=== PATIENT | male | born 1940 | race Caucasian/White ===

== ENCOUNTER 2017-04-18 18:22 | Emergency (ER) | payer OTHER ==
[2017-04-18 18:37] VITALS: BP 165/95; PULSE 75
--- NOTE | 2017-04-18 18:44 | EDPHY ---
H & P Stated Complaint: ear piece from hearing aid wedged in ear Time Seen by Provider: 04/18/17 18:39 HPI/ROS: CHIEF COMPLAINT: Ear foreign body HISTORY OF PRESENT ILLNESS: The patient is a 76-year-old man who lost a piece of his hearing aid in his right ear canal. This has happened before. He is could not get it out. He denies any pain. No hearing changes. REVIEW OF SYSTEMS: Constitutional: denies: chills, fever, recent illness, recent injury EENTM: See HPI Respiratory: denies: cough, shortness of breath Cardiac: denies: chest pain, irregular heart rate, lightheadedness, palpitations Gastrointestinal/Abdominal: denies: abdominal pain, diarrhea, nausea, vomiting, blood streaked stools Genitourinary: denies: dysuria, frequency, hematuria, pain Musculoskeletal: denies: joint pain, muscle pain Skin: denies: lesions, rash, jaundice, bruising Neurological: denies: headache, numbness, paresthesia, tingling, dizziness, weakness Hematologic/Lymphatic: denies: blood clots, easy bleeding, easy bruising Immunologic/allergic: denies: HIV/AIDS, transplant EXAM: GENERAL: Well-appearing, well-nourished and in no acute distress. HEAD: Atraumatic, normocephalic. EYES: Pupils equal round and reactive to light, extraocular movements intact, sclera anicteric, conjunctiva are normal. ENT: Foreign body right ear canal, no laceration or abrasion. No bleeding. No infection. TMs normal, nares patent, oropharynx clear without exudates. Moist mucous membranes. NECK: Normal range of motion, supple without lymphadenopathy or JVD. LUNGS: Breath sounds clear to auscultation bilaterally and equal. No wheezes rales or rhonchi. HEART: Regular rate and rhythm without murmurs, rubs or gallops. ABDOMEN: Soft, nontender, normoactive bowel sounds. No guarding, no rebound. No masses appreciated. BACK: No CVA tenderness, no spinal tenderness, step-offs or deformities EXTREMITIES: Normal range of motion, no pitting or edema. No clubbing or cyanosis. NEUROLOGICAL: Cranial nerves II through XII grossly intact. Normal speech, normal gait. 5/5 strength, normal movement in all extremities, normal sensation PSYCH: Normal mood, normal affect. SKIN: Warm, dry, normal turgor, no visible rashes or lesions. Source: Patient Exam Limitations: No limitations - Personal History Current Tetanus/Diphtheria Vaccine: Yes Current Tetanus Diphtheria and Acellular Pertussis (TDAP): Yes - Medical/Surgical History Hx Asthma: No Hx Chronic Respiratory Disease: No Hx Diabetes: No Hx Cardiac Disease: Yes Hx Renal Disease: No Hx Cirrhosis: No Hx Alcoholism: No Hx HIV/AIDS: No Hx Splenectomy or Spleen Trauma: No Other PMH: HBP/HIGH CHOLESTEROL, 5.1 cm Ascending Aortic Aneurism, prostatectomy , appendectomy, CAROL-CPAP w/o O2 NOC - Family History Significant Family History: No pertinent family hx - Social History Smoking Status: Never smoked Alcohol Use: Sober Drug Use: None Constitutional: Initial Vital Signs Temperature (C) 36.5 C 04/18/17 18:32 Heart Rate 75 04/18/17 18:32 Respiratory Rate 18 04/18/17 18:32 Blood Pressure 165/95 H 04/18/17 18:32 O2 Sat (%) 95 04/18/17 18:32 O2 Delivery Mode Room Air Allergies/Adverse Reactions: nebivolol HCl [From Bystolic] Allergy (Severe, Verified 05/01/15 07:35) Other-Enter Comments valsartan Allergy (Verified 04/18/17 18:31) Home Medications: Medication Instructions Recorded Simvastatin 20 mg PO HS 04/17/12 Aspirin [Aspirin 81mg (*)] 81 mg PO HS 03/31/15 Cholecalciferol (Vitamin D3) 2,000 unit PO HS 03/31/15 [Vitamin D3] amLODIPine BESYLATE [Norvasc 2.5 2.5 mg PO DAILY #0 tab 04/18/15 mg (*)] Medical Decision Making ED Course/Re-evaluation: I was able to remove the patient's foreign body with bayonet forceps and a headlamp. The patient tolerated the procedure well. He was happy and placed a hearing aid back into his ear. He declines further workup or testing. Differential Diagnosis: Partial list of the Differential diagnosis considered include but were not limited to; malfunction, foreign body ear, infection and although unlikely based on the history and physical exam, I also considered trauma,. I discussed these differential diagnoses and the plan with the patient as well as the usual and expected course. The patient understands that the diagnosis is provisional and that in medicine we are not always correct and that further workup is often warranted. Usual and customary warnings were given. All of the patient's questions were answered. The patient was instructed to return to the emergency department should the symptoms at all worsen or return, otherwise to followup with the physician as we discussed. Departure - Departure Disposition: Home, Routine, Self-Care Clinical Impression: Foreign body in right auditory canal Qualifiers: Encounter type: initial encounter Qualified Code(s): S00.451A - Superficial foreign body of right ear, initial encounter Condition: Fair Instructions: Ear Foreign Body (ED) Referrals: Ronal Jimenez MD [Primary Care Provider] - As per Instructions
[2017-04-18 18:57] VITALS: RESP 20; TEMP 98.6; O2SAT 94
== END 2017-04-18 18:57 | disposition home or self-care (01) ==
LOC: CED 18:22
DX: S00.451A Superficial foreign body of right ear, initial encounter (principal); Z79.82 Long term (current) use of aspirin; X58.XXXA Exposure to other specified factors, initial encounter

== ENCOUNTER 2017-05-28 16:21 | Emergency (ER) | payer OTHER ==
[2017-05-28] MEDS ORDERED: ADENOSINE 6 MG/2 ML VIAL ONE (16:30)
--- NOTE | 2017-05-28 16:32 | CPEKG ---
Heart Rate: 151 RR Interval: 397 QRSD Interval: 90 QT Interval: 308 QTC Interval: 489 P [place]: 0 QRS [place]: -56 T Wave [place]: 66 EKG Severity - ABNORMAL ECG - EKG Impression: Narrow complex tachycardia EKG Impression: LEFT ANTERIOR FASCICULAR BLOCK EKG Impression: CONSIDER POSTERIOR INFARCT EKG Impression: ST DEPRESSION, PROBABLY RATE RELATED Electronically Signed By: Sanya Jimenez 28-May-2017 21:20:53
[2017-05-28 16:38] VITALS: TEMP 98.4
[2017-05-28] MEDS ORDERED: NS 1,000 ML IV ONE (16:42)
[2017-05-28] MEDS ORDERED: ADENOSINE 6 MG/2 ML VIAL IVP ONE ×2 (16:42→16:43)
[2017-05-28] MEDS ORDERED: DILTIAZEM 25 MG/5 ML VIAL IVP ONE ×2 (16:47)
[2017-05-28] MEDS ORDERED: DILTIAZEM 125 MG in NS 100 ML IV ONE (16:47)
[2017-05-28 16:55] LABS: % IMMATURE GRANULYOCYTES 0.4 % (0.0-1.1); ABSOLUTE IMMATURE GRANULOCYTES 0.03 10^3/uL (0.00-0.10); ADD DIFF? NO; ADD MORPH? NO; ADD SCAN? NO; ATYPICAL LYMPHOCYTE FLAG 0 (0-99); FRAGMENT RBC FLAG 0 (0-99); HEMATOCRIT 42.5 % (40.0-51.0); HEMOGLOBIN 15.6 g/dL (13.7-17.5); LEFT SHIFT FLG 0 (0-99); LIPEMIA HEMOLYSIS FLAG 90 (0-99); MEAN CELL HEMOGLOBIN CONCENTR. 36.7 g/dL (32.4-36.7); MEAN CELL VOLUME 87.1 fL (81.5-99.8); MEAN PLATELET VOLUME 9.4 fL (8.7-11.7); PLATELET CLUMPS FLAG 0 (0-99); PLATELET COUNT 214 10^3/uL (150-400); RED BLOOD CELL COUNT 4.88 10^6/uL (4.40-6.38); RED CELL DISTRIBUTION WIDTH 13.3 % (11.5-15.2)
--- NOTE | 2017-05-28 17:01 | CPEKG ---
Heart Rate: 82 RR Interval: 732 P-R Interval: 244 QRSD Interval: 96 QT Interval: 384 QTC Interval: 449 P [place]: 32 QRS [place]: -60 T Wave [place]: 66 EKG Severity - ABNORMAL ECG - EKG Impression: SINUS ARRHYTHMIA, RATE 69-102 EKG Impression: FIRST DEGREE AV BLOCK EKG Impression: LEFT ANTERIOR FASCICULAR BLOCK EKG Impression: CONSIDER POSTERIOR INFARCT EKG Impression: No significant interval change when compared to an EKG dated 05/01/2015 Electronically Signed By: Sanya Jimenez 28-May-2017 21:20:15
[2017-05-28 17:02] LABS: INR 0.95 (0.83-1.16); PROTIME(PATIENT) 12.4 SEC (12.0-15.0)
[2017-05-28 17:04] LABS: ANION GAP 20 mEq/L (8-16); CALCIUM 9.4 mg/dL (8.5-10.4); CARBON DIOXIDE 22 mEq/l (22-31); CHLORIDE 102 mEq/L (97-110); GLOMERULAR FILTRATION RATE > 60; GLUCOSE 161 mg/dL (70-100); POTASSIUM 3.6 mEq/L (3.5-5.2); SODIUM 144 mEq/L (134-144)
[2017-05-28] MEDS ORDERED: ASPIRIN 81 MG CHEWABLE TAB PO ONE (17:11)
[2017-05-28 17:19] LABS: TROPONIN I < 0.012 ng/mL (0.000-0.034)
--- NOTE | 2017-05-28 17:41 | EDPHY ---
H & P Stated Complaint: rapid heart rate on and off for a week Time Seen by Provider: 05/28/17 16:24 HPI/ROS: This patient complains of the racing heart. He reports a history of the same in the past and review of past medical records reveals a visit in 2014 to [facility] ED for a flutter with rapid response that respond to IV diltiazem. The patient had been on Bystolic in the past but had exercise intolerance this medication so has refused beta-eliot since that time. He reports intermittent racing heart lasting several minutes to up to an hour over the past week and then today he has had racing heart for a few hours now. He reports very mild lightheadedness when he standing that improves when he is sitting down. He notes no other exacerbating or alleviating factors for her symptoms. The onset of the racing heart abrupt. It persists. His drove him here by private vehicle for further evaluation of his symptoms. ROS: Constitutional: No fevers recently. No significant fatigue. HEENT: No URI complaints or other complaints. Pulmonary: No dyspnea. No coughing. Cardiovascular: He denies any chest pain associated with this. No lower extremity edema.-mild lightheadedness as per HPI. GI: No nausea vomiting. Endocrine: No diaphoresis Integumentary: No complaints 10 point ROS is otherwise negative. Source: Patient Exam Limitations: No limitations - Personal History Current Tetanus/Diphtheria Vaccine: Yes Current Tetanus Diphtheria and Acellular Pertussis (TDAP): Yes - Medical/Surgical History PMH: Patient had repair of his ascending aortic aneurysm and at the same time a 4 vessel CABG at [facility] [place] [address] Morales. Prior atrial flutter with rapid response Hypertension on Norvasc Dyslipidemia on simvastatin Hx Asthma: No Hx Chronic Respiratory Disease: No Hx Diabetes: No Hx Cardiac Disease: Yes Hx Renal Disease: No Hx Cirrhosis: No Hx Alcoholism: No Hx HIV/AIDS: No Hx Splenectomy or Spleen Trauma: No Other PMH: HBP/HIGH CHOLESTEROL, 5.1 cm Ascending Aortic Aneurism, prostatectomy , appendectomy, CAROL-CPAP w/o O2 NOC - Social History Smoking Status: Never smoked Alcohol Use: None Drug Use: None Additional Social History: Accompanied by his of many years. - Physical Exam Exam: Vital signs are notable for heart rate ranges between 150- 160-rapid narrow complex on monitor, O2 sat 94-95% on room air. Other vitals normal General Appearance: Pleasant 76-year-old male appears younger than his stated age. Alert, no distress. Eyes: Pupils equal and round no pallor or injection. ENT, Mouth: Mucous membranes moist. Respiratory: Clear to auscultation bilaterally. No wheezing. No rales. Cardiovascular: Tachycardic with no murmur gallop rub, JVD or peripheral edema Gastrointestinal: Abdomen is soft and nontender, no masses, bowel sounds normal. Neurological: GCS 15 with no focal neuro deficits Skin: Warm and dry, no rashes. Musculoskeletal: Neck is supple nontender. Extremities are symmetrical, full range of motion. Psychiatric: Mood and affect normal DIFFERENTIAL DIAGNOSIS: After history and physical exam differential diagnosis was considered for a flutter with rapid response, SVT, rule out metabolic disarray, thyroid dysfunction or other Constitutional: Initial Vital Signs Heart Rate 150 H 05/28/17 16:25 Respiratory Rate 18 05/28/17 16:25 Blood Pressure 136/82 H 05/28/17 16:25 O2 Sat (%) 94 05/28/17 16:25 O2 Delivery Mode Room Air O2 (L/minute) 2 Allergies/Adverse Reactions: nebivolol HCl [From Bystolic] Allergy (Severe, Verified 05/01/15 07:35) Other-Enter Comments valsartan Allergy (Verified 04/18/17 18:31) Home Medications: Medication Instructions Recorded Simvastatin 20 mg PO HS 04/17/12 Aspirin [Aspirin 81mg (*)] 81 mg PO HS 03/31/15 Cholecalciferol (Vitamin D3) 2,000 unit PO HS 03/31/15 [Vitamin D3] amLODIPine BESYLATE [Norvasc 2.5 2.5 mg PO DAILY #0 tab 04/18/15 mg (*)] Diltiazem HCl [Diltiazem 24Hr Cd] 120 mg PO DAILY #15 cap.er.24h 05/28/17 Medical Decision Making - Diagnostics EKG Interpretation: Initial 12 lead EKG performed shortly after arrival at 4:28 p.m. indication tachycardia Neuro complex rhythm at 1:51 a.m. QRS of 90, QTC of 49 [place]: QRS of-56, T of 66 overall assessment Neuro complex tachycardia likely a flutter with rapid response mild ST depression anterolaterally. Repeat EKG after conversion to sinus rhythm performed at 4:53 p.m. reveals sinus rhythm at 82 P R of 244, QRS of 96, QTC of 449 [place]: P of 32, QRS of 160, T of 66 overall assessment sinus rhythm with first- degree AV block and left anterior fascicular block When compared to prior EKG dated 05/01/2015 appreciate no significant interval change. He has mild ST depression on previous EKG anteriorly. He also has left axis deviation on prior EKG Imaging Results: Imaging Impressions Chest X-Ray 05/28/17 16:58 Impression: 1. Cardiomegaly and pulmonary venous hypertension. No failure. 2. Clear lungs. Poor inspiratory effort. Borderline cardiomegaly. Otherwise normal Imaging: I viewed and interpreted images myself ED Course/Re-evaluation: IV, monitor Valsalva maneuver with brief swelling of his rhythm but rapid return back to Neuro complex tachycardia 150-160 Given brief duration of his symptoms treated with adenosine with again a pause but quick return back to Neuro complex tachycardia Saline bolus, Diltiazem 0.25 milligrams/kilogram IV bolus with resolution of his tachycardia and conversion to a sinus rhythm. I spoke with Dr. Russell, layer out plate glass on-call for Dr. Ronal Jimenez who agrees with plan for discharge home on diltiazem CD-120 mg a day. Patient will start this with 1st dose tonight. Given the interaction with simvastatin metabolism being decrease, will have the patient hold his simvastatin, call Dr. Jimenez on Friday for close follow-up and continue the diltiazem CD in the meantime. Review of labs reveals normal CBC and electrolytes, normal troponin CRITICAL CARE TIME: I spent a total of 30 minutes of critical care time in obtaining history, performing a physical exam, bedside monitoring of interventions, collecting and interpreting tests and discussion with consultants but not including time spent performing procedures. Discussion: Patient presented with narrow complex tachycardia and lightheadedness that required acute intervention for rate control. But difficult to appreciate P waves in the initial EKG I think there hidden in the T -waves in that this was an atrial flutter with 2-1 conduction given study rate of 150-160, and prior history of atrial flutter. Sinus rhythm after he converted on diltiazem on EKG without evidence of acute ischemic changes when compared to an old EKG. Similarly, he has no ischemic symptoms. I do not think he had any significant physiologic complications of his relatively brief rapid a flutter. Given his prior exercise intolerance on beta-blockers he declines beta-blockers currently so will treat him with the diltiazem CD as mentioned above.. Patient understands need to return emergency department should he have any significant recurrence of symptoms - Data Points Laboratory Results: Laboratory Results 05/28/17 16:30 05/28/17 16:30 05/28/17 05/28/17 05/28/17 16:30 16:30 16:30 WBC RBC Hgb Hct MCV MCH MCHC RDW Plt Count MPV Neut % (Auto) Lymph % (Auto) Bath % (Auto) Eos % (Auto) Baso % (Auto) Nucleat RBC Rel Count Absolute Neuts (auto) Absolute Lymphs (auto) Absolute Monos (auto) Absolute Eos (auto) Absolute Basos (auto) Absolute Nucleated RBC Immature Gran % Immature Gran # PT 12.4 SEC SEC (12.0-15.0) INR 0.95 (0.83-1.16) Sodium 144 mEq/L mEq/L (134-144) Potassium 3.6 mEq/L mEq/L (3.5-5.2) Chloride 102 mEq/L mEq/L (97-110) Carbon Dioxide 22 mEq/l mEq/l (22-31) Anion Gap 20 mEq/L H mEq/L (8-16) BUN 28 mg/dL H mg/dL (7-23) Creatinine 1.0 mg/dL mg/dL (0.7-1.3) Estimated GFR > 60 Glucose 161 mg/dL H mg/dL (70-100) Calcium 9.4 mg/dL mg/dL (8.5-10.4) Troponin I < 0.012 ng/mL ng/mL (0.000-0.034) TSH 1.460 uIU/mL uIU/mL Cancelled (0.465-4.680) 05/28/17 16:30 WBC 7.48 10^3/uL 10^3/uL (3.80-9.50) RBC 4.88 10^6/uL 10^6/uL (4.40-6.38) Hgb 15.6 g/dL g/dL (13.7-17.5) Hct 42.5 % % (40.0-51.0) MCV 87.1 fL fL (81.5-99.8) MCH 32.0 pg pg (27.9-34.1) MCHC 36.7 g/dL g/dL (32.4-36.7) RDW 13.3 % % (11.5-15.2) Plt Count 214 10^3/uL 10^3/uL (150-400) MPV 9.4 fL fL (8.7-11.7) Neut % (Auto) 75.0 % H % (39.3-74.2) Lymph % (Auto) 14.4 % L % (15.0-45.0) Bath % (Auto) 8.2 % % (4.5-13.0) Eos % (Auto) 1.5 % % (0.6-7.6) Baso % (Auto) 0.5 % % (0.3-1.7) Nucleat RBC Rel Count 0.0 % % (0.0-0.2) Absolute Neuts (auto) 5.61 10^3/uL 10^3/uL (1.70-6.50) Absolute Lymphs (auto) 1.08 10^3/uL 10^3/uL (1.00-3.00) Absolute Monos (auto) 0.61 10^3/uL 10^3/uL (0.30-0.80) Absolute Eos (auto) 0.11 10^3/uL 10^3/uL (0.03-0.40) Absolute Basos (auto) 0.04 10^3/uL 10^3/uL (0.02-0.10) Absolute Nucleated RBC 0.00 10^3/uL 10^3/uL (0-0.01) Immature Gran % 0.4 % % (0.0-1.1) Immature Gran # 0.03 10^3/uL 10^3/uL (0.00-0.10) PT INR Sodium Potassium Chloride Carbon Dioxide Anion Gap BUN Creatinine Estimated GFR Glucose Calcium Troponin I TSH Medications Given: Discontinued Medications Adenosine (Adenosine) 6 mg IVP EDNOW ONE Stop: 05/28/17 16:43 Last Admin: 05/28/17 16:42 Dose: 6 mg Adenosine (Adenosine) 12 mg IVP EDNOW ONE Stop: 05/28/17 16:44 Last Admin: 05/28/17 16:44 Dose: 12 mg Aspirin (Aspirin) 243 mg PO EDNOW ONE Stop: 05/28/17 17:12 Last Admin: 05/28/17 17:44 Dose: 243 mg Diltiazem HCl (Cardizem 25 Mg/5 Ml Vial) 20 mg IVP EDNOW ONE Stop: 05/28/17 16:48 Last Admin: 05/28/17 16:49 Dose: 20 mg Sodium Chloride (Ns) 1,000 mls @ 0 mls/hr IV EDNOW ONE; Wide Open PRN Reason: Protocol Stop: 05/28/17 16:43 Last Admin: 05/28/17 16:35 Dose: 1,000 mls Diltiazem HCl 125 mg/ Sodium (Chloride) 125 mls @ 0 mls/hr IV EDNOW ONE; Titrate PRN Reason: Protocol Stop: 05/28/17 16:48 Last Admin: 05/28/17 16:55 Dose: 125 mls Departure - Departure Disposition: Home, Routine, Self-Care Clinical Impression: Paroxysmal atrial flutter Condition: Good Instructions: Atrial Flutter (ED) Additional Instructions: Diagnosis: Atrial flutter-converted to sinus rhythm Plan: Continue aspirin 81 mg a day Start the diltiazem CD 120mg 1 pill a day. Take the 1st dose tonight and on subsequent evenings. Stop your simvastatin as the diltiazem decreases the ability of the body to metabolize the simvastatin. Call Dr. Ronal Jimenez on Friday to arrange close follow-up appointment for recheck. Return to the emergency department if he have any recurrence of your fast heart rhythm despite the plan the last more than 15 minutes or shorter if accompanied by any significant lightheadedness or other bothersome symptoms. Referrals: Jesús Clark DO [Primary Care Provider] - As per Instructions Prescriptions: Diltiazem HCl [Diltiazem 24Hr Cd] 120 mg PO DAILY #15 cap.er.24h
[2017-05-28 18:14] VITALS: BP 144/65; PULSE 75; RESP 18; O2SAT 95
== END 2017-05-28 17:53 | disposition home or self-care (01) ==
LOC: CED 16:21
DX: I48.0 Paroxysmal atrial fibrillation (principal); I10 Essential (primary) hypertension; E86.9 Volume depletion, unspecified; Z79.82 Long term (current) use of aspirin; Z95.1 Presence of aortocoronary bypass graft
CPT/HCPCS: 71010; 93005; 96374; 96375; 99291; J0153; 80048-PO; 84443-PO; 84484-PO; 85025-PO; 85610-PO

== ENCOUNTER 2017-06-20 14:18 | Inpatient (IN) | payer OTHER ==
[~2017-06-20 14:18] MED LIST: AMIODARONE HCL 540 MG in D5W 300 ML IV ONE
[2017-06-20] MEDS ORDERED: ACETAMINOPHEN 325 MG TAB PO PRN (16:07)
[2017-06-20] MEDS ORDERED: AMIODARONE HCL 200 ML IV ONE (16:12)
[2017-06-20] MEDS ORDERED: AMIODARONE HCL 100 ML IV ONE (16:12)
[2017-06-20 17:43] LABS: % IMMATURE GRANULYOCYTES 0.5 % (0.0-1.1); ABSOLUTE IMMATURE GRANULOCYTES 0.03 10^3/uL (0.00-0.10); ADD DIFF? NO; ADD MORPH? NO; ADD SCAN? NO; ATYPICAL LYMPHOCYTE FLAG 0 (0-99); FRAGMENT RBC FLAG 0 (0-99); HEMATOCRIT 43.8 % (40.0-51.0); HEMOGLOBIN 15.4 g/dL (13.7-17.5); LEFT SHIFT FLG 0 (0-99); LIPEMIA HEMOLYSIS FLAG 90 (0-99); MEAN CELL HEMOGLOBIN 31.2 pg (27.9-34.1); MEAN CELL HEMOGLOBIN CONCENTR. 35.2 g/dL (32.4-36.7); MEAN CELL VOLUME 88.7 fL (81.5-99.8); MEAN PLATELET VOLUME 9.5 fL (8.7-11.7); PLATELET CLUMPS FLAG 10 (0-99); PLATELET COUNT 182 10^3/uL (150-400); RED BLOOD CELL COUNT 4.94 10^6/uL (4.40-6.38); RED CELL DISTRIBUTION WIDTH 13.3 % (11.5-15.2)
[2017-06-20 17:52] LABS: INR 1.12 (0.83-1.16); PROTIME(PATIENT) 14.6 SEC (12.0-15.0)
[2017-06-20 17:53] LABS: APTT 27.1 SEC (23.0-38.0)
[2017-06-20 18:04] LABS: ALANINE AMINOTRANSFERASE 35 IU/L (21-72); ALBUMIN 4.1 g/dL (3.5-5.0); ALKALINE PHOSPHATASE 93 IU/L (38-126); ASPARTATE AMINOTRANSFERASE 24 IU/L (17-59); BILIRUBIN,TOTAL 1.1 mg/dL (0.1-1.4); CALCIUM 9.5 mg/dL (8.5-10.4); CARBON DIOXIDE 28 mEq/l (22-31); CHLORIDE 107 mEq/L (97-110); GLOMERULAR FILTRATION RATE > 60; GLUCOSE 86 mg/dL (70-100); MAGNESIUM 2.3 mg/dL (1.6-2.3); SODIUM 146 mEq/L (134-144); TOTAL PROTEIN 6.6 g/dL (6.3-8.2)
[2017-06-20 18:46] LABS: ANION GAP 11 mEq/L (8-16); POTASSIUM 3.8 mEq/L (3.5-5.2)
--- NOTE | 2017-06-20 19:00 | PDCARPN ---
Cardiology Progress Note Chief Complaint: Patient reporting episodes of significant palpitations this morning, with associated symptoms of lightheadedness. Assessment/Plan: Assessment: Please see Dr. Taylor's office note, to be used as official history and physical. 76-year-old male with significant history that includes atrial fibrillation, atrial flutter , CAD, hypercholesteremia, hypertension, and CAROL. Seen in office today for complain of increased heart rate with dizziness. Does report prior to , was seen in emergency department for palpitations, was started on diltiazem , home doses of Diovan and amlodipine were discontinued. Reports no chest pain or shortness of breath. Denies of any near-syncope or syncopal events. Denies of any symptoms suggestive of TIA or CVA. Plan: 1. Atrial fibrillation/flutter: Patient having episodes of elevated heart rate up to 150 BPM. Will start on IV amiodarone loading today. Discontinue diltiazem. Continue on home dose Eliquis. 2. CAD: Patient denies of any chest pain or pressure or symptoms suggesting of ischemia. Current we not on aspirin therapy due to being on Eliquis. 3. Hypertension: Patient's blood pressure within normal limits. Will monitor closely , with the discontinuation of diltiazem. May need to be restarted on amlodipine and Diovan. 4. Hyperlipidemia: Current we not on any statin therapy. Will have him get a fasting lipid panel in a.m., may need to be started on statin therapy after laboratory studies. 5. DVT prophylaxis: Patient has been resumed on home dose of Eliquis. Patient will also wear Fortino hose. 6. Code status: Patient is a full code. 06/20/17 18:55 Subjective: Patient currently reports no palpitations, denies of any chest pain, shortness of breath, lightheadedness, orthopnea PND, edema, near-syncope, or syncopal events. Denies of any symptoms suggestive of TIA or CVA. Reviewed/Discussed With: other (Dr Taylor) Objective: Vital Signs (8 Hrs) Temp Pulse Resp BP Pulse Ox 06/20/17 18:39 74 125/77 H 06/20/17 17:20 36.6 C 79 14 144/70 H 93 Intake/Output (24 Hrs) 06/19/17 06/20/17 06/21/17 05:59 05:59 05:59 Intake Total 120 Balance 120 Intake: Oral (ml) 120 Other: Weight 78.6 kg Intake Quantity Yes Sufficient Result Diagrams: 06/20/17 15:15 06/20/17 15:15 - Physical Exam Constitutional: healthy appearing Ears, Nose, Mouth, Throat: moist mucous membranes Cardiovascular: systolic murmur ( 2/6 over left sternal border.), irregularly irregular ( Sinus rhythm with frequent PACs.), pulses symmetric bilat, No jugular vein distention, No carotid bruit Peripheral Pulses: 1+: dorsalis-pedis (R), dorsalis-pedis (L), 2+: carotid (R), carotid (L) Respiratory: clear to auscultate bilat, no crackles, no wheezes, No reduced air movement Gastrointestinal: normoactive bowel sounds, no tenderness Skin: no rashes, warm, no edema Neurologic: AAOx3 Psychiatric: cooperative, interactive, following commands ICD10 Worksheet Patient Problems: Problems Problem Status Onset Ascending aortic aneurysm Acute Beta-eliot intolerance Chronic CAD (coronary artery disease), [place] coronary artery Acute Benign essential HTN Chronic Dyslipidemia Chronic CAROL on CPAP Chronic S/P ascending aortic replacement Acute S/P CABG x 4 Acute Acute postoperative respiratory insufficiency Acute
[2017-06-20] MEDS: APIXABAN 5 MG TAB PO SCH (19:49)
[2017-06-20] MEDS: CHOLECALCIFEROL VIT D3 2,000 UNITS TAB/CAP PO SCH (19:49)
[2017-06-21] MEDS ORDERED: AMIODARONE HCL 540 MG in D5W 300 ML IV ONE (00:30)
[2017-06-21 05:30] LABS: ANION GAP 12 mEq/L (8-16); CALCIUM 9.1 mg/dL (8.5-10.4); CARBON DIOXIDE 26 mEq/l (22-31); CHLORIDE 106 mEq/L (97-110); CREATININE 1.1 mg/dL (0.7-1.3); GLOMERULAR FILTRATION RATE > 60; GLUCOSE 105 mg/dL (70-100); MAGNESIUM 2.2 mg/dL (1.6-2.3); POTASSIUM 3.5 mEq/L (3.5-5.2); SODIUM 144 mEq/L (134-144)
--- NOTE | 2017-06-21 06:05 | CPEKG ---
Heart Rate: 55 RR Interval: 1091 P-R Interval: 244 QRSD Interval: 98 QT Interval: 484 QTC Interval: 463 P [place]: 47 QRS [place]: -39 T Wave [place]: 63 EKG Severity - ABNORMAL ECG - EKG Impression: SINUS RHYTHM EKG Impression: ATRIAL PREMATURE COMPLEX EKG Impression: FIRST DEGREE AV BLOCK EKG Impression: LEFT AXIS DEVIATION Electronically Signed By: Bita Riley 21-Jun-2017 14:10:35
[2017-06-21] MEDS: APIXABAN 5 MG TAB PO SCH ×2 (08:41→20:20)
--- NOTE | 2017-06-21 08:46 | SOAPPROG ---
SOAP Progress Note Assessment/Plan: Assessment/Plan: This is a 76 yr old male with PAF and flutter, CAD, HTN, Dyslipidemia who was seen in the clinic for symptomatic AFl. Pt admitted and IV amiodarone given. Pt converted to SR and has remained in SR. Continue AMiodarone and switch to PO. Will continue PO amiodarone and Eliquis. HTN: Currently stable, continue to monitor Dyslipidmeia: continue home meds. 06/21/17 08:43 Subjective: Pt is feeling better. Has some dizziness but decreased. Plans to ambulate today Objective: Vital Signs Temp Pulse Resp BP Pulse Ox 36.4 C 67 14 136/78 H 95 06/21/17 07:23 06/21/17 07:23 06/21/17 07:23 06/21/17 07:23 06/21/17 07:23 Laboratory Results 06/20/17 15:15 06/21/17 04:09 06/20/17 06/21/17 06/22/17 05:59 05:59 05:59 Intake Total 560 Balance 560 PT 14.6 SEC (12.0-15.0) 06/20/17 15:15 INR 1.12 (0.83-1.16) 06/20/17 15:15 Physical Exam - Physical Exam General Appearance: alert, no apparent distress EENT: PERRL/EOMI, pharynx normal, TMs normal Neck: non-tender, full range of motion, supple Respiratory: lungs clear, normal breath sounds, No crackles, No rales Cardiac/Chest: regular rate, rhythm, No edema, No JVD Abdomen: non-tender, soft, No organomegaly Skin: normal color, warm/dry ICD10 Worksheet Patient Problems: Problems Problem Status Onset Acute postoperative respiratory insufficiency Acute Ascending aortic aneurysm Acute CAD (coronary artery disease), [place] coronary artery Acute S/P CABG x 4 Acute S/P ascending aortic replacement Acute Benign essential HTN Chronic Beta-eliot intolerance Chronic Dyslipidemia Chronic CAROL on CPAP Chronic
[2017-06-21] MEDS: AMIODARONE HCL 200 MG TAB PO SCH ×2 (12:19→20:19)
--- NOTE | 2017-06-21 14:41 | ASMTCMCOM ---
CM Note CM Note Notes: Pt admitted w/ palpitations, light headedness, afib/aflutter. Per MD notes, pt has a significant cardiac hx. Pt started on IV Amiodarone, converted to sinus rhythm. Pt lives w/ his . Anticipate pt will likely discharge home independently w/ family support when medically stable. CM will cont to follow. Current discharge plan: Home independently w/ family support Date Signed: 06/21/2017 02:40 PM Electronically Signed By:Regina Varma RN
[2017-06-21] MEDS: CHOLECALCIFEROL VIT D3 2,000 UNITS TAB/CAP PO SCH (20:20)
[2017-06-22 05:06] VITALS: O2SAT 96
[2017-06-22 07:51] VITALS: BP 145/78; PULSE 68; RESP 15; TEMP 98.3
[2017-06-22] MEDS: AMIODARONE HCL 200 MG TAB PO SCH (08:40)
[2017-06-22] MEDS: APIXABAN 5 MG TAB PO SCH (08:40)
--- NOTE | 2017-06-22 12:23 | ASDISCHSUM ---
Discharge Information Plan Status:Home with No Needs Medically Cleared to Leave:06/21/2017 Discharge Date:06/22/2017 11:07 AM CM D/C Disposition:Home, Routine, Self-Care ADT D/C Disposition:Home, Routine, Self-Care Projected Discharge Date:06/22/2017 11:07 AM Transportation at D/C:Family Discharge Delay Reason: Follow-Up Date:06/22/2017 11:07 AM Discharge Slot: Final Diagnosis: Placement Information Patient Contact Information Contact Name:MAGALY Relationship: Address:[address] City:[facility] Phone: State/Zip Code:[place] [address] Email: Financial Information Financial Class:Medicare Advantage Plans Primary Plan Desc:[place] [employer] [place]TE Primary Plan Number:[id number] Secondary Plan Desc: Secondary Plan Number: Assessment Information [facility] CM Progress Note CM Note CM Note Notes: Pt admitted w/ palpitations, light headedness, afib/aflutter. Per MD notes, pt has a significant cardiac hx. Pt started on IV Amiodarone, converted to sinus rhythm. Pt lives w/ his . Anticipate pt will likely discharge home independently w/ family support when medically stable. CM will cont to follow. Current discharge plan: Home independently w/ family support Date Signed: 06/21/2017 02:40 PM Electronically Signed By:Regina Varma RN Intervention Information
--- NOTE | 2017-06-22 12:30 | GDS ---
[f rep st] DISCHARGE SUMMARY HISTORY OF PRESENT ILLNESS: This is a 76-year-old patient with atrial fibrillation, atrial flutter, coronary artery disease, dyslipidemia, hypertension, sleep apnea and previous history of ascending ao rtic aneurysm repair, who recently has been having atrial fibrillation and atrial flutter with associ ated dizziness. The patient was seen in the emergency room around [facility] and was prescribed diltiazem. An even t monitor was started. However, the patient continued to have atrial flutter and fibrillation, and w as feeling extremely dizzy with that. He was seen in the clinic and was noted to have atrial flutter with rapid ventricular rate of 154 beats per minute. Hence, it was decided to admit the patient for initiation of amiodarone. PAST MEDICAL HISTORY: Coronary artery disease medically managed, ascending aortic aneurysm of 5.1 cm , dyslipidemia, hypertension and obstructive sleep apnea. FAMILY HISTORY: Noncontributory. HOSPITAL COURSE: The patient was admitted to the hospital from the clinic. He was started on IV ami odarone. His atrial flutter terminated. He continued to remain in normal rhythm. Symptomatically, he improved significantly. He was switched over to p.o. amiodarone and was monitored. The patient continued to do well, at whic h point in time after observing for 36 hours, it was decided to discharge the patient to home. DISCHARGE MEDICATIONS: Amiodarone 400 twice daily for 2 weeks followed by amiodarone 400 daily for 2 weeks followed by amiodarone 200 daily, atorvastatin 10 mg daily, vitamin D3 2000 units every night, herbal supplements, Eliquis 5 mg p.o. twice daily, Cardizem CD 240 mg daily. FOLLOWUP: Appointment with Dr. Jagdish Taylor and Dr. Jesús Clark. Recommended that the patient amanda l us if he has lightheadedness, dizziness, presyncope, syncope, chest pain or pressure. /[id number]/MODL
[2017-06-23] MEDS ORDERED: AMIODARONE HCL 200 MG TAB PO SCH (09:00)
== END 2017-06-22 11:07 | disposition home or self-care (01) | DRG 310 ==
LOC: F2W 16:35 → OBSVTOIN 06-21 08:52
PROVIDERS: ADMIT Nurse Practitioner Family; ATTEND Nurse Practitioner Family
DX: I48.0 Paroxysmal atrial fibrillation (principal); I48.92 Unspecified atrial flutter; I25.10 Atherosclerotic heart disease of native coronary artery without angina pectoris; I10 Essential (primary) hypertension; E78.00 Pure hypercholesterolemia, unspecified; G47.33 Obstructive sleep apnea (adult) (pediatric); Z85.46 Personal history of malignant neoplasm of prostate
CPT/HCPCS: G0378; J0282

== ENCOUNTER → 2017-08-01 | Outpatient (CLI) | payer OTHER | LOC: FIMAGING 11:29 | PROVIDERS: ATTEND Internal Medicine Cardiovascular Disease | DX: I71.9 Aortic aneurysm of unspecified site, without rupture (principal); I48.91 Unspecified atrial fibrillation; I48.92 Unspecified atrial flutter ==

== ENCOUNTER 2018-01-29 18:28 | Emergency (ER) | payer OTHER ==
[2018-01-29 18:39] VITALS: BP 174/85
--- NOTE | 2018-01-29 18:43 | EDPHY ---
H & P Stated Complaint: Finger laceration Time Seen by Provider: 01/29/18 18:33 HPI/ROS: CHIEF COMPLAINT: Finger laceration HISTORY OF PRESENT ILLNESS: The patient is a 77-year-old man who cut his fingers caught in a electric jon tremor around noon today. He has avulsion lacerations to his left 3rd and 4th finger distal phalanx. Fat pad only involved. No nail or nail bed. No joint or bony injury. No crush injury. No other injuries. He did not think it needed stitches but it continues to bleed. He does take Eliquis. REVIEW OF SYSTEMS: Constitutional: denies: chills, fever, recent illness, recent injury EENTM: denies: blurred vision, double vision, nose congestion Respiratory: denies: cough, shortness of breath Cardiac: denies: chest pain, irregular heart rate, lightheadedness, palpitations Gastrointestinal/Abdominal: denies: abdominal pain, diarrhea, nausea, vomiting, blood streaked stools Genitourinary: denies: dysuria, frequency, hematuria, pain Musculoskeletal: denies: joint pain, muscle pain Skin: See HPI Neurological: denies: headache, numbness, paresthesia, tingling, dizziness, weakness Hematologic/Lymphatic: denies: blood clots, easy bleeding, easy bruising Immunologic/allergic: denies: HIV/AIDS, transplant EXAM: GENERAL: Well-appearing, well-nourished and in no acute distress. HEAD: Atraumatic, normocephalic. EYES: Pupils equal round and reactive to light, extraocular movements intact, sclera anicteric, conjunctiva are normal. ENT: TMs normal, nares patent, oropharynx clear without exudates. Moist mucous membranes. NECK: Normal range of motion, supple without lymphadenopathy or JVD. LUNGS: Breath sounds clear to auscultation bilaterally and equal. No wheezes rales or rhonchi. HEART: Regular rate and rhythm without murmurs, rubs or gallops. ABDOMEN: Soft, nontender, normoactive bowel sounds. No guarding, no rebound. No masses appreciated. BACK: No CVA tenderness, no spinal tenderness, step-offs or deformities EXTREMITIES: Left 3rd and 4th finger avulsion/laceration to the fat pad distal phalanx only. 3rd worse than 4th. NEUROLOGICAL: Cranial nerves II through XII grossly intact. Normal speech, normal gait. 5/5 strength, normal movement in all extremities, normal sensation PSYCH: Normal mood, normal affect. SKIN: Warm, dry, normal turgor, no visible rashes or lesions. Source: Patient, Family Exam Limitations: No limitations - Personal History Current Tetanus Diphtheria and Acellular Pertussis (TDAP): Yes Tetanus Vaccine Date: within 5 years - Medical/Surgical History Hx Asthma: No Hx Chronic Respiratory Disease: No Hx Diabetes: No Hx Cardiac Disease: Yes Hx Renal Disease: No Hx Cirrhosis: No Hx Alcoholism: No Hx HIV/AIDS: No Hx Splenectomy or Spleen Trauma: No Other PMH: Atrial fibrillation, HBP/HIGH CHOLESTEROL, 5.1 cm Ascending Aortic Aneurism, prostatectomy, appendectomy, CAROL-CPAP w/o O2 NOC, SVT - Family History Significant Family History: No pertinent family hx - Social History Smoking Status: Never smoked Alcohol Use: Sober Drug Use: None Constitutional: Initial Vital Signs Temperature (C) 37.0 C 01/29/18 18:35 Heart Rate 62 01/29/18 18:35 Respiratory Rate 18 01/29/18 18:35 Blood Pressure 174/85 H 01/29/18 18:35 O2 Sat (%) 95 01/29/18 18:35 O2 Delivery Mode Room Air Allergies/Adverse Reactions: nebivolol HCl [From Bystolic] Allergy (Severe, Verified 01/29/18 18:35) Other-Enter Comments valsartan Allergy (Verified 01/29/18 18:35) Home Medications: Medication Instructions Recorded Cholecalciferol (Vitamin D3) 2,000 unit PO HS 03/31/15 [Vitamin D3] Apixaban [Eliquis] 5 mg PO BID 06/20/17 Diltiazem HCl [Cardizem Cd] 240 mg PO HS 06/20/17 Herbals/Supplements -Info Only 1 ea PO DAILY 06/20/17 Amiodarone HCl 400 mg PO DAILY #14 tablet 06/22/17 Amiodarone HCl [Pacerone (*)] 400 mg PO BID #28 tab 06/22/17 Atorvastatin Calcium 10 mg PO DAILY #90 tablet 06/22/17 Medical Decision Making Procedures: Procedure: Laceration repair. Verbal consent was obtained from the patient. The 3 cm 3rd finger laceration was anesthetized with 0.5% bupivacaine locally infiltrated. The wound was irrigated copiously according to protocol, draped and explored to its base. It was approximately 1/2 cm deep. There were no deep structures involved. No tendon, nerve, or vascular injury was identified when explored through full range of motion. No foreign body was identified. The wound was repaired with 5.0 Prolene, 6 simple sutures and 1 horizontal mattress, interrupted. The wound repair was moderately complex with flap realignment. The procedure was performed by myself. A dressing was then placed with sterile gauze and bacitracin. Procedure: Laceration repair. Verbal consent was obtained from the patient. The 2 cm 4th finger laceration was anesthetized with 0.5% bupivacaine locally infiltrated. The wound was irrigated copiously according to protocol, draped and explored to its base. It was approximately 1/2 cm deep. There were no deep structures involved. No tendon, nerve, or vascular injury was identified when explored through full range of motion. No foreign body was identified. The wound was repaired with 5.0 Prolene, 3 sutures, interrupted. The wound repair was simple without wound margin revisement or multiple flap alignment. The procedure was performed by myself. A dressing was then placed with sterile gauze and bacitracin. ED Course/Re-evaluation: Partial list of the Differential diagnosis considered include but were not limited to; laceration, nail bed injury, fracture and although unlikely based on the history and physical exam, I also considered infection, foreign body. I discussed these differential diagnoses and the plan with the patient as well as the usual and expected course. The patient understands that the diagnosis is provisional and that in medicine we are not always correct and that further workup is often warranted. Usual and customary warnings were given. All of the patient's questions were answered. The patient was instructed to return to the emergency department should the symptoms at all worsen or return, otherwise to followup with the physician as we discussed. Departure - Departure Disposition: Home, Routine, Self-Care Clinical Impression: Laceration Condition: Fair Instructions: Finger Laceration (ED) Additional Instructions: Return to have your stitches removed in 10 days Referrals: Jesús Clark, DO [Primary Care Provider] - As per Instructions
== END 2018-01-29 19:15 | disposition home or self-care (01) ==
LOC: CED 18:28
PROC: 0HQGXZZ Repair Left Hand Skin, External Approach (ICD-10-PCS; principal; 2018-01-29)
DX: S61.213A Laceration without foreign body of left middle finger without damage to nail, initial encounter (principal); S61.215A Laceration without foreign body of left ring finger without damage to nail, initial encounter; W29.3XXA Contact with powered garden and outdoor hand tools and machinery, initial encounter

== ENCOUNTER → 2018-07-09 | Outpatient (CLI) | payer OTHER | LOC: CIMAGING 11:53 | PROVIDERS: ATTEND Internal Medicine Cardiovascular Disease | DX: R06.02 Shortness of breath (principal); Z79.899 Other long term (current) drug therapy | CPT/HCPCS: 71046-PO ==

== ENCOUNTER 2018-08-01 18:45 | Emergency (ER) | payer OTHER ==
--- NOTE | 2018-08-01 19:13 | EDPHY ---
H & P Stated Complaint: Fell on ice at 1000 today. Pain in R wrist, cms intact. no LOC. Time Seen by Provider: 08/01/18 18:56 HPI/ROS: CHIEF COMPLAINT: Right hand pain HISTORY OF PRESENT ILLNESS: This is a 77-year-old male, on [place], who slipped and fell on the ice this morning around 10:00 a.m. (9 hours ago). He has had persistent pain in the back of his right hand since the fall. He tried applying heat. He has not taken any analgesics. He is right-hand dominant. He denies other injuries. He did not strike his head. REVIEW OF SYSTEMS: A ten system review of systems was performed and is negative with the exception of the items mentioned in the HPI. Past medical history: 1. AFib/flutter 2. Coronary artery disease 3. Dyslipidemia 4. Sleep apnea 5. Hypertension 6. Ascending aortic aneurysm status post repair 7. Hard of hearing Past surgical history: Repair of ascending aortic aneurysm Social history: He lives with his . He is a retired automated equipment engineer technician. He does not use tobacco or alcohol products. General Appearance: Alert. Vital signs reviewed. Blood pressure 183/95. Focused exam was performed. Neck: Nontender to palpation over the cervical spine in the midline. Respiratory: Lungs are clear to auscultation; no wheezes, rales, or rhonchi. Cardiovascular: Regular rate and rhythm; no murmur, rub, or gallop. Skin: Warm and dry, no rashes on exposed skin, normal color. Back: Nontender to palpation over the thoracolumbar spine. Extremities: Tenderness in the right him posteriorly over the 3rd and 4th metacarpals. No obvious deformity. Full flexion and extension of all 5 digits. Sensation intact to light touch over the right hand. Pulses: 2+ radial pulse on the right. Neurological: Alert and oriented. Moving all four extremities easily and equally. Psychiatric: Normal affect. - Personal History Current Tetanus Diphtheria and Acellular Pertussis (TDAP): Yes Tetanus Vaccine Date: within 5 years - Medical/Surgical History Hx Asthma: No Hx Chronic Respiratory Disease: No Hx Diabetes: No Hx Cardiac Disease: Yes Hx Renal Disease: No Hx Cirrhosis: No Hx Alcoholism: No Hx HIV/AIDS: No Hx Splenectomy or Spleen Trauma: No Other PMH: Atrial fibrillation, HBP/HIGH CHOLESTEROL, 5.1 cm Ascending Aortic Aneurism, prostatectomy, appendectomy, CAROL-CPAP w/o O2 NOC, SVT - Social History Smoking Status: Never smoked Constitutional: Initial Vital Signs Temperature (C) 36.9 C 08/01/18 19:02 Heart Rate 66 08/01/18 19:02 Respiratory Rate 18 08/01/18 19:02 Blood Pressure 183/95 H 08/01/18 19:02 O2 Sat (%) 96 08/01/18 19:02 O2 Delivery Mode Room Air Allergies/Adverse Reactions: nebivolol HCl [From Bystolic] Allergy (Severe, Verified 08/01/18 19:01) Other-Enter Comments valsartan Allergy (Verified 08/01/18 19:01) Home Medications: Medication Instructions Recorded Cholecalciferol (Vitamin D3) 2,000 unit PO HS 03/31/15 [Vitamin D3] Apixaban [Eliquis] 5 mg PO BID 06/20/17 Diltiazem HCl [Cardizem Cd] 240 mg PO HS 06/20/17 Herbals/Supplements -Info Only 1 ea PO DAILY 06/20/17 Amiodarone HCl 400 mg PO DAILY #14 tablet 06/22/17 Atorvastatin Calcium 10 mg PO DAILY #90 tablet 06/22/17 Losartan Potassium 08/01/18 Medical Decision Making - Diagnostics Imaging Results: Imaging Impressions Hand X-Ray 08/01/18 19:06 Impression: 1. No acute osseous abnormality seen right hand to the wrist. 2. 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 Findings discussed with Hermila Cam M.D. at 20:08 hour, 08/01/2018. ED Course/Re-evaluation: Hand injury after falling on the ice. My interpretation of his hand x-ray is that there is no fracture or dislocation. He is aware of his elevated BP reading tonight. Differential Diagnosis: I considered a differential diagnosis that includes but is not limited to fracture, dislocation, sprain, strain, contusion, abrasion, laceration. Departure - Departure Disposition: Home, Routine, Self-Care Clinical Impression: Contusion of hand, right Qualifiers: Encounter type: initial encounter Qualified Code(s): S60.221A - Contusion of right hand, initial encounter Condition: Good Instructions: Contusion in Adults (ED) Additional Instructions: I recommend Tylenol, 650 mg every 4 hr as needed for pain. Do not take more than 3000 mg of Tylenol in a 24 hr time period. I sure hand an elevated as much as possible. If you develop any new problem such as difficulty moving her fingers, numbness, weakness--you should be re-evaluated. Referrals: Jesús Clark, DO [Primary Care Provider] - As per Instructions
[2018-08-01 20:28] VITALS: BP 162/95
== END 2018-08-01 20:15 | disposition home or self-care (01) ==
LOC: CED 18:45
DX: S60.221A Contusion of right hand, initial encounter (principal); Z79.01 Long term (current) use of anticoagulants; W00.0XXA Fall on same level due to ice and snow, initial encounter; Y92.9 Unspecified place or not applicable; Y93.9 Activity, unspecified; Y99.9 Unspecified external cause status
CPT/HCPCS: 73130-PO; 99283-ER